=== PATIENT | female | born 1960 | race Caucasian/White ===

== ENCOUNTER 2018-03-19 12:02 | Outpatient (CLI) | payer MEDICAID | END 2018-03-19 23:59 | disposition home or self-care (01) | LOC: RAD 12:02 | PROVIDERS: ATTEND Family Medicine | DX: R41.89 Other symptoms and signs involving cognitive functions and awareness (principal); K14.8 Other diseases of tongue | CPT/HCPCS: 95816 ==

== ENCOUNTER 2018-11-17 17:17 | Emergency (ER) | payer MEDICAID ==
[~2018-11-17] VITALS: Ht 170.2 cm; Wt 96.0 kg
[2018-11-17] MEDS ORDERED: acetaminophen 325mg tablet PO ONE (19:35)
[2018-11-17 20:02] VITALS: BP 163/83
== END 2018-11-17 20:54 | disposition home or self-care (01) ==
LOC: ER 17:39
DX: S80.01XA Contusion of right knee, initial encounter (principal); S39.012A Strain of muscle, fascia and tendon of lower back, initial encounter; R55 Syncope and collapse; R42 Dizziness and giddiness; W19.XXXA Unspecified fall, initial encounter; Y93.89 Activity, other specified; Y92.89 Other specified places as the place of occurrence of the external cause; Y99.8 Other external cause status
CPT/HCPCS: 70450; 99284